=== PATIENT | male | born 1940 | race Caucasian/White ===

== ENCOUNTER 2018-08-06 09:55 | Emergency (ER) | payer MEDICARE ==
[2018-08-06 10:47] LABS: BASOPHILS % (AUTO) 0.6 % (0.0-5.0); EOSINOPHILS % (AUTO) 6.9 % (0.0-8.0); HEMATOCRIT 46.6 % (42-54); MEAN CORPUSCULAR HEMOGLOBIN 33.1 pg (27.0-33.0); MEAN CORPUSCULAR VOLUME 94.5 fL (79-99); MONOCYTES % (AUTO) 9.8 % (3.0-13.0); NEUTROPHILS % (AUTO) 68.7 % (40.0-77.0); PLATELET COUNT (AUTO) 255 K/uL (130-400); RED BLOOD CELL COUNT(AUTO) 4.93 MIL/uL (4.50-6.20); RED CELL DISTRIBUTION WIDTH 12.9 % (11.0-15.5); WHITE BLOOD COUNT (AUTO) 6.7 K/uL (4.8-10.8)
[2018-08-06 10:54] LABS: CREATININE 0.8 mg/dL (0.5-1.5); POTASSIUM 4.2 mmol/L (3.5-5.1)
== END 2018-08-06 12:03 | disposition home or self-care (01) ==
LOC: EDH 09:55
DX: B34.9 Viral infection, unspecified (principal); I10 Essential (primary) hypertension; I48.91 Unspecified atrial fibrillation
CPT/HCPCS: 36415; 71046; 80048; 85025

== ENCOUNTER → 2018-10-15 | Outpatient (CLI) | payer MEDICARE ==
[~2018-10-15] MED LIST: REGADENOSON 0.4 MG/5 ML PF SYG IVP SCH
== END | disposition home or self-care (01) ==
LOC: SHCH 08:32
PROVIDERS: ATTEND Internal Medicine Cardiovascular Disease
DX: I99.8 Other disorder of circulatory system (principal); I25.10 Atherosclerotic heart disease of native coronary artery without angina pectoris; R06.09 Other forms of dyspnea
CPT/HCPCS: 78452; 93017; 96374; A9500 ×2; J2785

== ENCOUNTER → 2018-12-30 | Outpatient (CLI) | payer MEDICARE ==
[2018-12-30 17:08] VITALS: BP 147/77
== END | disposition home or self-care (01) ==
LOC: WHH 14:30
PROVIDERS: ATTEND Surgery
DX: S50.812A Abrasion of left forearm, initial encounter (principal); I10 Essential (primary) hypertension; I48.0 Paroxysmal atrial fibrillation; I25.10 Atherosclerotic heart disease of native coronary artery without angina pectoris; I99.8 Other disorder of circulatory system; W19.XXXA Unspecified fall, initial encounter; Y93.53 Activity, golf; Y92.39 Other specified sports and athletic area as the place of occurrence of the external cause; Y99.8 Other external cause status
CPT/HCPCS: A6021; G0463

== ENCOUNTER → 2019-01-07 | Outpatient (CLI) | payer MEDICARE ==
[2019-01-07 12:15] VITALS: BP 123/74
== END | disposition home or self-care (01) ==
LOC: WHH 10:00
PROVIDERS: ATTEND Surgery
DX: S50.812D Abrasion of left forearm, subsequent encounter (principal); I10 Essential (primary) hypertension; I48.0 Paroxysmal atrial fibrillation; I25.10 Atherosclerotic heart disease of native coronary artery without angina pectoris; I99.8 Other disorder of circulatory system; X58.XXXD Exposure to other specified factors, subsequent encounter
CPT/HCPCS: A6021; G0463

== ENCOUNTER → 2019-01-14 | Outpatient (CLI) | payer MEDICARE ==
[2019-01-14 14:54] VITALS: BP 145/80
== END | disposition home or self-care (01) ==
LOC: WHH 09:45
PROVIDERS: ATTEND Surgery
DX: S50.812D Abrasion of left forearm, subsequent encounter (principal); I10 Essential (primary) hypertension; I48.0 Paroxysmal atrial fibrillation; I25.10 Atherosclerotic heart disease of native coronary artery without angina pectoris; I99.9 Unspecified disorder of circulatory system; X58.XXXD Exposure to other specified factors, subsequent encounter
CPT/HCPCS: 97597; A6021

== ENCOUNTER 2019-08-19 18:10 | Observation (INO) | payer MEDICARE ==
[2019-08-19] VITALS (7 sets, daily range): BP systolic 113–140; BP diastolic 67–75
[~2019-08-19] VITALS: Ht 172.7 cm; Wt 68.4 kg
[2019-08-19] MEDS ORDERED: ASPIRIN 325 MG TABLET ONE (18:12)
[2019-08-19] MEDS ORDERED: NITROGLYCERIN 0.4 MG SL TAB SL ONE (18:15)
[2019-08-19] MEDS ORDERED: NITROGLYCERIN 5 MG/ML 10 ML VIAL IV ONE (18:17)
[2019-08-19] MEDS ORDERED: SODIUM BICARB 50MEQ 50ML VIAL ONE (18:17)
[2019-08-19] MEDS ORDERED: IOHEXOL-350 50ML VIAL IV ONE (18:17)
[2019-08-19] MEDS ORDERED: BIVALIRUDIN 250 MG/VIAL IV ONE (18:17)
[2019-08-19] MEDS ORDERED: IOHEXOL 350 MG/ML 100ML INFUS..BTL IV ONE (18:17)
[2019-08-19] MEDS ORDERED: LIDOCAINE HCL 2% 20ML ONE (18:18)
[2019-08-19] MEDS ORDERED: MIDAZOLAM HCL 1 MG/ML 2ML VIAL ONE (18:18)
[2019-08-19] MEDS ORDERED: FENTANYL CITRATE PF 50 MCG/1 ML 2ML VIAL ONE (18:18)
[2019-08-19] MEDS ORDERED: NITROGLYCERIN 50 MG/D5% WATER 1 BOT ONE (18:21)
[2019-08-19] MEDS ORDERED: LIDOCAINE PF 2% 5ML ABBOJECT ONE (18:25)
[2019-08-19] MEDS ORDERED: ATROPINE SULFATE 0.1 MG/ML 10 ML SYG IVP ONE (18:25)
[2019-08-19] MEDS ORDERED: DOPAMINE HCL 400 MG/D5%-WATER 0 ML IV ONE (18:25)
[2019-08-19 18:42] LABS: BASOPHILS % (AUTO) 0.6 % (0.0-5.0); EOSINOPHILS % (AUTO) 8.7 % (0.0-8.0); LYMPHOCYTES % (AUTO) 23.3 % (21.0-51.0); MEAN CORPUSCULAR HGB CONC 36.7 g/dL (32.0-36.0); MEAN CORPUSCULAR VOLUME 89.8 fL (79-99); MONOCYTES % (AUTO) 9.5 % (3.0-13.0); NEUTROPHILS % (AUTO) 57.6 % (40.0-77.0); PLATELET COUNT (AUTO) 259 K/uL (130-400); RED BLOOD CELL COUNT(AUTO) 4.79 MIL/uL (4.50-6.20); RED CELL DISTRIBUTION WIDTH 12.7 % (11.0-15.5); WHITE BLOOD COUNT (AUTO) 8.8 K/uL (4.8-10.8)
[2019-08-19] MEDS ORDERED: METOPROLOL TARTRATE 1 MG/ML 5ML VIAL IV ONE (18:44)
[2019-08-19 18:54] LABS: INR 0.95 (0.85-1.15); PARTIAL THROMBOPLASTIN TIME 24.4 SEC (26.3-35.5); POTASSIUM 3.1 mmol/L (3.5-5.1)
[2019-08-19 18:59] LABS: ALBUMIN 4.2 g/dL (3.5-5.0); BILIRUBIN,TOTAL 0.6 mg/dL (0.2-1.0); TOTAL PROTEIN, SERUM 7.2 g/dL (6.0-8.3)
[2019-08-19] MEDS ORDERED: IOHEXOL-350 75 ML VIAL IV ONE (19:04)
[2019-08-19] MEDS ORDERED: SODIUM CHLORIDE 0.9% 1000ML 1,000 ML IV SCH (19:49)
[2019-08-19] MEDS ORDERED: POTASSIUM CHLORIDE 20 MEQ ERTAB PO PRN (20:00)
[2019-08-19] MEDS ORDERED: ONDANSETRON HCL 4 MG/2 ML VIAL IVP PRN (20:00)
[2019-08-19] MEDS: METOPROLOL TARTRATE 25 MG TAB PO SCH (21:00)
[2019-08-19 21:12] LABS: TROPONIN I 0.13 ng/mL (0.00-0.06)
[2019-08-19] MEDS ORDERED: IBUPROFEN 200 MG TAB PO SCH (21:15)
[2019-08-19] MEDS ORDERED: DIPHENHYDRAMINE HCL 25 MG CAPSULE PO SCH (21:15)
[2019-08-19] MEDS: FLECAINIDE ACETATE 100 MG TABLET PO SCH (21:39)
[2019-08-20 00:47] VITALS: BP 122/72
[2019-08-20 03:00] VITALS: BP 142/80
[2019-08-20 04:34] LABS: HEMATOCRIT 39.3 % (42-54); MEAN CORPUSCULAR HEMOGLOBIN 32.5 pg (27.0-33.0); MEAN CORPUSCULAR HGB CONC 35.9 g/dL (32.0-36.0); MEAN CORPUSCULAR VOLUME 90.6 fL (79-99); PLATELET COUNT (AUTO) 248 K/uL (130-400); RED BLOOD CELL COUNT(AUTO) 4.34 MIL/uL (4.50-6.20); RED CELL DISTRIBUTION WIDTH 12.7 % (11.0-15.5); WHITE BLOOD COUNT (AUTO) 5.1 K/uL (4.8-10.8)
[2019-08-20 05:11] LABS: CREATININE 0.8 mg/dL (0.5-1.5); POTASSIUM 3.4 mmol/L (3.5-5.1)
[2019-08-20 06:18] LABS: TROPONIN I 0.78 ng/mL (0.00-0.06)
--- NOTE | 2019-08-20 07:45 | NUR ---
AM ASSESSMENT PT SITTING IN BED, RESTING. A/O X 3. NO SOB. NO DISTRESS NOTED. DENIES CHEST PAIN OR DISCOMFORT. DENIES PALPITATIONS. TELE: SR. DENIES N/V AND/OR DIARRHEA. RT GROIN DSG DRY & INTACT. PUNCTURE SITE SOFT, NON-TENDER. NO BLEEDING, NO HEMATOMA NOTED. (+) STRONG PEDAL PULSES BILATERAL. BLE INK & WARM TO TOUCH. UP AD MIK. INSTRUCTED TO CALL FOR ASSISTANCE. CALL GUSTAVO W/IN REACH.
[2019-08-20] MEDS ORDERED: PANT40TA PO (07:59)
[2019-08-20] MEDS ORDERED: Flecainide Acetate PO (07:59)
[2019-08-20] MEDS ORDERED: ASPI-1005 PO (07:59)
[2019-08-20] MEDS ORDERED: CLOP75TA14 PO (07:59)
[2019-08-20] MEDS ORDERED: HYDR25TA PO (07:59)
[2019-08-20] MEDS ORDERED: ATOR20TA65 PO (07:59)
[2019-08-20] MEDS ORDERED: METO25 PO (07:59)
[2019-08-20] MEDS ORDERED: AMLO5TAB4 PO (07:59)
[2019-08-20] MEDS: METOPROLOL TARTRATE 25 MG TAB PO SCH (08:43)
[2019-08-20] MEDS: FLECAINIDE ACETATE 100 MG TABLET PO SCH (08:44)
[2019-08-20] MEDS ORDERED: HYDROCHLOROTHIAZIDE 25 MG TABLET PO SCH (09:00)
[2019-08-20] MEDS ORDERED: ASPIRIN 81MG TAB.CHEW PO SCH (09:00)
[2019-08-20] MEDS ORDERED: ATORVASTATIN CALCIUM 20 MG TABLET PO SCH (09:00)
[2019-08-20] MEDS ORDERED: CLOPIDOGREL BISULFATE 75 MG TAB PO SCH (09:00)
[2019-08-20] MEDS ORDERED: PANTOPRAZOLE SODIUM 40 MG TABLET.DR PO SCH (09:00)
[2019-08-20] MEDS ORDERED: AMLODIPINE BESYLATE 5 MG TAB PO SCH (09:00)
[2019-08-20 09:12] VITALS: BP 150/78
--- NOTE | 2019-08-20 10:30 | NUR ---
DISCHARGE VERBAL & WRITTEN DISCHARGE INSTRUCTIONS REVIEWED & GIVEN TO PT & SPOUSE. QUESTIONS ENCOURAGED & CLARIFIED. PROPER CARE & ACTIVITY AFTER LHC W/STENT REVIEWED. NEW PRESCRIBED MEDICATIONS REVIEWED. PRESCRIPTION GIVEN TO PT. SIGNED COPY PLACED IN CHART. TELE HERMILO REMOVED. IV DISCONTINUED. PT & SPOUSE TO GATHER PERSONAL BELONGINGS.
--- NOTE | 2019-08-20 10:45 | NUR ---
DISCHARGE PT TAKEN TO PRIVATE VEHICLE VIA WC BY Elyssa RO PCP, ACCOMPANIED BY SPOUSE. NO DISTRESS NOTED.
[2019-08-26] MEDS ORDERED: CLOPIDOGREL BISULFATE 75 MG TAB PO SCH (09:00)
== END 2019-08-20 10:45 | disposition home or self-care (01) ==
LOC: EDH 18:10 → EDHIP 18:27 → 2AH 19:56
PROVIDERS: ADMIT Internal Medicine; ATTEND Internal Medicine
DX: I21.4 Non-ST elevation (NSTEMI) myocardial infarction (principal); I48.0 Paroxysmal atrial fibrillation; I10 Essential (primary) hypertension; E78.5 Hyperlipidemia, unspecified; I25.119 Atherosclerotic heart disease of native coronary artery with unspecified angina pectoris; Z95.5 Presence of coronary angioplasty implant and graft; Z85.46 Personal history of malignant neoplasm of prostate; Z90.79 Acquired absence of other genital organ(s); Z79.01 Long term (current) use of anticoagulants; Z79.82 Long term (current) use of aspirin; Z79.899 Other long term (current) drug therapy
CPT/HCPCS: 36415; 71045; 80048; 80053; 80061; 82550; 83874; 84484; 85025; 85027; 85610; 85730; 93005; 93458; 99156; 99157; C1725; C1760; C1769; C1887; C1894; C9600; G0378; J0461; J0583; J1265; J1644; J2001; J2250; J3010; J3490; Q0163; Q9967

== ENCOUNTER 2019-09-03 09:26 | Emergency (ER) | payer MEDICARE ==
[~2019-09-03 09:26] MED LIST changes: +AMLO5TAB4 PO; +ASPI-1005 PO; +ATOR20TA65 PO; +CLOP75TA14 PO; +Flecainide Acetate PO; +HYDR25TA PO; +METO25 PO; +PANT40TA PO; -REGADENOSON 0.4 MG/5 ML PF SYG IVP SCH
[2019-09-03 09:52] LABS: EOSINOPHILS % (AUTO) 10.2 % (0.0-8.0); HEMATOCRIT 46.8 % (42-54); LYMPHOCYTES % (AUTO) 25.3 % (21.0-51.0); MEAN CORPUSCULAR HEMOGLOBIN 32.6 pg (27.0-33.0); MEAN CORPUSCULAR HGB CONC 35.3 g/dL (32.0-36.0); MEAN CORPUSCULAR VOLUME 92.5 fL (79-99); MONOCYTES % (AUTO) 10.2 % (3.0-13.0); NEUTROPHILS % (AUTO) 52.9 % (40.0-77.0); PLATELET COUNT (AUTO) 245 K/uL (130-400); RED BLOOD CELL COUNT(AUTO) 5.06 MIL/uL (4.50-6.20); RED CELL DISTRIBUTION WIDTH 12.9 % (11.0-15.5); WHITE BLOOD COUNT (AUTO) 4.8 K/uL (4.8-10.8)
[2019-09-03 10:08] LABS: INR 0.97 (0.85-1.15); PARTIAL THROMBOPLASTIN TIME 24.9 SEC (26.3-35.5); PROTHROMBIN TIME 10.2 SEC (9.6-11.6)
[2019-09-03 10:22] LABS: POTASSIUM 3.9 mmol/L (3.5-5.1)
[2019-09-03 10:27] LABS: ALBUMIN 3.9 g/dL (3.5-5.0); BILIRUBIN,TOTAL 0.6 mg/dL (0.2-1.0); TOTAL PROTEIN, SERUM 6.8 g/dL (6.0-8.3)
[2019-09-03 10:27] LABS: APPEARANCE,URINE Clear (CLEAR); BILIRUBIN,URINE Negative (NEGATIVE); COLOR,URINE Yellow (YELLOW); GLUCOSE, URINE (UA) Negative (NEGATIVE); KETONES,URINE Negative (NEGATIVE); LEUKOCYTE ESTERASE ,URINE Negative (NEGATIVE); NITRATE,URINE Negative (NEGATIVE); OCCULT BLOOD,URINE Negative (NEGATIVE); PROTEIN,URINE Negative (NEGATIVE); UROBILINOGEN,URINE 0.2 mg/dL (0.2-1.0)
== END 2019-09-03 11:41 | disposition home or self-care (01) ==
LOC: EDH 09:26
DX: T78.3XXA Angioneurotic edema, initial encounter (principal); I10 Essential (primary) hypertension; I48.91 Unspecified atrial fibrillation; I25.2 Old myocardial infarction; T45.525A Adverse effect of antithrombotic drugs, initial encounter; Y92.89 Other specified places as the place of occurrence of the external cause
CPT/HCPCS: 36415; 80053; 81003; 85025; 85610; 85730

== ENCOUNTER → 2021-03-06 | Outpatient (CLI) | payer MEDICARE | END | disposition home or self-care (01) | LOC: RAH 11:49 | PROVIDERS: ATTEND Internal Medicine | DX: Z01.818 Encounter for other preprocedural examination (principal) | CPT/HCPCS: 71046 ==

== ENCOUNTER 2023-01-20 06:39 | Day surgery (SDC) | payer MEDICARE ==
[2023-01-16 16:19] LABS: BASOPHILS % (AUTO) 0.8 % (0.0-5.0); EOSINOPHILS % (AUTO) 7.6 % (0.0-8.0); HEMATOCRIT 49.2 % (42-54); LYMPHOCYTES % (AUTO) 24.6 % (21.0-51.0); MEAN CORPUSCULAR HEMOGLOBIN 31.9 pg (27.0-33.0); MEAN CORPUSCULAR HGB CONC 34.3 g/dL (32.0-36.0); MONOCYTES % (AUTO) 8.3 % (3.0-13.0); NEUTROPHILS % (AUTO) 58.5 % (40.0-77.0); PLATELET COUNT (AUTO) 228 K/uL (130-400); RED BLOOD CELL COUNT(AUTO) 5.29 MIL/uL (4.50-6.20); RED CELL DISTRIBUTION WIDTH 13.2 % (11.0-15.5); WHITE BLOOD COUNT (AUTO) 5.9 K/uL (4.8-10.8)
[2023-01-16 16:30] LABS: CREATININE 0.8 mg/dL (0.5-1.5); POTASSIUM 4.1 mmol/L (3.5-5.1)
[2023-01-16 16:53] VITALS: BP 125/67
[~2023-01-20] VITALS: Ht 172.7 cm; Wt 71.0 kg
[~2023-01-20 06:39] MED LIST changes: +AMLO-257 PO; -AMLO5TAB4 PO; +APIX5TAB PO; -ASPI-1005 PO; -ATOR20TA65 PO; -CLOP75TA14 PO; +FLEC150T2 PO; -Flecainide Acetate PO; -HYDR25TA PO; +LOSA50TA64 PO; -METO25 PO; -PANT40TA PO; +PANT40TA54 PO; +TADA20TA43 PO
[2023-01-20] MEDS ORDERED: 0.9%NACL 1000ML 1,000 ML IV ONE (06:48)
[2023-01-20] MEDS ORDERED: DRON400T7 PO ×2 (07:36→08:31)
[2023-01-20 07:37] VITALS: BP 129/75
[2023-01-20] MEDS ORDERED: PROPOFOL 10 MG/ML 20ML VIAL IV ONE (07:59)
[2023-01-20] MEDS ORDERED: PHENYLEPHRINE HCL 10 MG/ML 1ML VIAL IV ONE (08:00)
[2023-01-20] MEDS ORDERED: SUCCINYLCHOLINE 200MG/10ML SYR ONE (08:03)
[2023-01-20 08:20] VITALS: BP 103/59
[2023-01-20 08:30] VITALS: BP 105/60
[2023-01-20 08:40] VITALS: BP 125/69
[2023-01-20 08:50] VITALS: BP 126/73
== END 2023-01-20 09:05 | disposition home or self-care (01) ==
LOC: DAH 06:39
PROVIDERS: ATTEND Internal Medicine Cardiovascular Disease
DX: I48.19 Other persistent atrial fibrillation (principal); Z20.822 Contact with and (suspected) exposure to COVID-19; I10 Essential (primary) hypertension; I25.10 Atherosclerotic heart disease of native coronary artery without angina pectoris; Z86.73 Personal history of transient ischemic attack (TIA), and cerebral infarction without residual deficits; Z95.5 Presence of coronary angioplasty implant and graft; Z98.890 Other specified postprocedural states; Z85.46 Personal history of malignant neoplasm of prostate; Z90.79 Acquired absence of other genital organ(s); Z79.01 Long term (current) use of anticoagulants; Z79.899 Other long term (current) drug therapy
CPT/HCPCS: 87426; 80048; 85025; 36415; 92960; 93005 ×2; J0330; J7030; J2704; J2370; A4215; A4657; A4222; A4221; A4663; A4216; A4606; A4223 ×2

== ENCOUNTER → 2023-02-07 | Outpatient (CLI) | payer MEDICARE ==
[~2023-02-07] MED LIST changes: +DRON400T7 PO; -FLEC150T2 PO
[2023-02-07 15:21] LABS: CREATININE 0.9 mg/dL (0.5-1.5)
== END | disposition home or self-care (01) ==
LOC: LAB 13:58
PROVIDERS: ATTEND Internal Medicine Cardiovascular Disease
DX: I48.0 Paroxysmal atrial fibrillation (principal)
CPT/HCPCS: 36415; 82565; 84520

== ENCOUNTER → 2023-02-21 | Outpatient (CLI) | payer MEDICARE ==
[~2023-02-21] MED LIST changes: +ATOR10 PO; +IOHEXOL 350 MG/ML 100ML INFUS..BTL IV ONE; +SUCR1ORA15 PO
== END | disposition home or self-care (01) ==
LOC: RAH 09:54
PROVIDERS: ATTEND Internal Medicine Cardiovascular Disease
DX: I48.19 Other persistent atrial fibrillation (principal); I51.7 Cardiomegaly
CPT/HCPCS: 71275; Q9967

== ENCOUNTER 2023-02-25 06:00 | Observation (INO) | payer MEDICARE ==
[2023-02-24 09:12] LABS: BASOPHILS % (AUTO) 0.8 % (0.0-5.0); EOSINOPHILS % (AUTO) 5.2 % (0.0-8.0); HEMATOCRIT 48.7 % (42-54); LYMPHOCYTES % (AUTO) 23.2 % (21.0-51.0); MEAN CORPUSCULAR HEMOGLOBIN 31.7 pg (27.0-33.0); MEAN CORPUSCULAR HGB CONC 34.7 g/dL (32.0-36.0); MEAN CORPUSCULAR VOLUME 91.4 fL (79-99); MONOCYTES % (AUTO) 8.7 % (3.0-13.0); NEUTROPHILS % (AUTO) 61.9 % (40.0-77.0); PLATELET COUNT (AUTO) 219 K/uL (130-400); RED BLOOD CELL COUNT(AUTO) 5.33 MIL/uL (4.50-6.20); RED CELL DISTRIBUTION WIDTH 13.7 % (11.0-15.5)
[2023-02-24 09:22] LABS: CREATININE 0.8 mg/dL (0.5-1.5); POTASSIUM 4.4 mmol/L (3.5-5.1)
[2023-02-24 09:26] LABS: INR 1.06 (0.85-1.15); PROTHROMBIN TIME 11.5 SEC (9.6-11.6)
[2023-02-24 09:27] LABS: PARTIAL THROMBOPLASTIN TIME 32.1 SEC (26.3-35.5)
[2023-02-24 09:39] VITALS: BP 150/95
[~2023-02-25] VITALS: Ht 172.7 cm; Wt 70.4 kg
[2023-02-25] VITALS (17 sets, daily range): BP systolic 104–150; BP diastolic 60–100
[~2023-02-25 06:00] MED LIST changes: -ATOR10 PO; -DRON400T7 PO; -IOHEXOL 350 MG/ML 100ML INFUS..BTL IV ONE; -SUCR1ORA15 PO
[2023-02-25] MEDS ORDERED: 0.9%NACL 1000ML 1,000 ML IV ONE (06:26)
[2023-02-25] MEDS ORDERED: PROPOFOL 10 MG/ML 20ML VIAL IV ONE (06:52)
[2023-02-25] MEDS ORDERED: MIDAZOLAM HCL 1 MG/ML 2ML VIAL ONE ×2 (06:52→07:16)
[2023-02-25] MEDS ORDERED: FENTANYL CITRATE PF 50 MCG/1 ML 2ML VIAL ONE ×3 (06:53→08:27)
[2023-02-25] MEDS ORDERED: PHENYLEPHRINE HCL 10 MG/ML 1ML VIAL IV ONE ×2 (07:04→07:52)
[2023-02-25] MEDS ORDERED: ATOR10 PO (07:06)
[2023-02-25] MEDS ORDERED: HEPARIN 10,000 UNIT/10ML (1,000 UNIT/ML) VIAL ONE ×2 (07:17→08:38)
[2023-02-25] MEDS ORDERED: LIDOCAINE HCL 1% MDV 50ML VIAL ONE (07:17)
[2023-02-25] MEDS ORDERED: ROCURONIUM 10MG/1ML SYR 10 MG/ML ML ONE (07:23)
[2023-02-25] MEDS ORDERED: GLYCOPYRROLATE 1 MG/5 ML SYRINGE ONE (08:27)
[2023-02-25] MEDS ORDERED: NEOSTIGMINE 5MG/5ML SYR IV ONE (08:27)
[2023-02-25] MEDS ORDERED: ISOPROTERENOL HCL 0.2 MG/ML AMP/VIAL/BAG ONE (10:30)
[2023-02-25] MEDS ORDERED: MORPHINE 2 MG SYG ONE (12:09)
[2023-02-25] MEDS: SUCRALFATE 1 GM TABLET PO SCH ×2 (13:00→18:42)
[2023-02-25] MEDS ORDERED: SUCRALFATE 1 GM TABLET PO SCH (14:30)
[2023-02-25] MEDS: AMLODIPINE 5 MG TAB PO SCH ×2 (21:00→21:16)
[2023-02-25] MEDS: ATORVASTATIN 10 MG TABLET PO SCH ×2 (21:00→21:16)
[2023-02-25] MEDS: APIXABAN 5 MG TABLET PO SCH (21:16)
[2023-02-25] MEDS ORDERED: ZOLPIDEM TARTRATE 5 MG TAB PO ONE (21:30)
[2023-02-26 00:03] VITALS: BP 129/76
[2023-02-26] MEDS: SUCRALFATE 1 GM TABLET PO SCH ×2 (01:05→06:18)
[2023-02-26 03:09] VITALS: BP 131/75
[2023-02-26 06:43] LABS: HEMATOCRIT 41.1 % (42-54); MEAN CORPUSCULAR HEMOGLOBIN 31.7 pg (27.0-33.0); MEAN CORPUSCULAR HGB CONC 34.8 g/dL (32.0-36.0); MEAN CORPUSCULAR VOLUME 91.1 fL (79-99); PLATELET COUNT (AUTO) 194 K/uL (130-400); RED BLOOD CELL COUNT(AUTO) 4.51 MIL/uL (4.50-6.20); RED CELL DISTRIBUTION WIDTH 13.8 % (11.0-15.5); WHITE BLOOD COUNT (AUTO) 9.4 K/uL (4.8-10.8)
[2023-02-26 06:47] LABS: CREATININE 0.8 mg/dL (0.5-1.5); POTASSIUM 3.3 mmol/L (3.5-5.1)
[2023-02-26 07:17] LABS: BASOPHILS % (MANUAL) 2 % (0-2); EOSINOPHILS % (MANUAL) 2 % (1-6); LYMPHOCYTES % (MANUAL) 7 % (22-44); MAN.DIFF COMMENT-IMPRESSION MANUAL DIFFERENTIAL; MONOCYTES % (MANUAL) 10 % (2-9); PLATELET MORPHOLOGY COMMENT ADEQUATE; SEGMENTED NEUTROPHILS % 79 % (40-70)
[2023-02-26] MEDS: APIXABAN 5 MG TABLET PO SCH (08:19)
[2023-02-26] MEDS: AMLODIPINE 5 MG TAB PO SCH (08:19)
[2023-02-26 08:42] VITALS: BP 145/89
[2023-02-26] MEDS ORDERED: LOSARTAN 50 MG TABLET PO SCH (09:00)
[2023-02-26] MEDS ORDERED: PANTOPRAZOLE 40 MG TAB DR PO SCH (09:00)
[2023-02-26] MEDS ORDERED: SUCR1ORA15 PO (09:07)
[2023-02-26] MEDS ORDERED: DRON400T7 PO (09:07)
[2023-02-26] MEDS ORDERED: DRONEDARONE HYDROCHLORIDE 400 MG TABLET PO SCH (09:30)
[2023-02-26] MEDS ORDERED: KCL 20 MEQ ERTAB PO ONE (09:30)
== END 2023-02-26 10:58 | disposition home or self-care (01) ==
LOC: DAH 06:00 → DAHIP 06:01 → 2DH 13:06
PROVIDERS: ADMIT Internal Medicine Cardiovascular Disease; ATTEND Internal Medicine Cardiovascular Disease
DX: I48.19 Other persistent atrial fibrillation (principal); Z20.822 Contact with and (suspected) exposure to COVID-19; I25.10 Atherosclerotic heart disease of native coronary artery without angina pectoris; J44.9 Chronic obstructive pulmonary disease, unspecified; I10 Essential (primary) hypertension; Z79.82 Long term (current) use of aspirin; Z79.899 Other long term (current) drug therapy; Z98.890 Other specified postprocedural states; Z85.46 Personal history of malignant neoplasm of prostate; Z95.1 Presence of aortocoronary bypass graft
CPT/HCPCS: 80048 ×2; 85025 ×2; 85610; 85730; 87426; 36415 ×2; 93005 ×2; 93622; 93623; 93656; 85347 ×6; C1894 ×5; A4344; C1732 ×2; C1893; A4215 ×2; C1731; A4649 ×2; G0378 ×23; J3010 ×3; J3490 ×3; J2710; J2270; J7030; J1644 ×4; J2250; J2704; J2370 ×2; A4223 ×3; A4222; A4221; A4663; A4216; A4606

== ENCOUNTER 2023-04-11 06:52 | Day surgery (SDC) | payer MEDICARE ==
[2023-04-09 10:53] LABS: BASOPHILS # (AUTO) 0.04 K/uL (0.00-0.20); BASOPHILS % (AUTO) 0.8 % (0.0-5.0); EOSINOPHILS # (AUTO) 0.32 K/uL (0.00-0.70); EOSINOPHILS % (AUTO) 6.6 % (0.0-8.0); IMMATURE GRANULOCYTE ABSOLUTE 0.01 K/uL (0-1); LYMPHOCYTES # (AUTO) 1.2 K/uL (1.0-4.8); LYMPHOCYTES % (AUTO) 23.8 % (21.0-51.0); MEAN CORPUSCULAR HEMOGLOBIN 32.3 pg (27.0-33.0); MEAN CORPUSCULAR HGB CONC 34.4 g/dL (32.0-36.0); MEAN CORPUSCULAR VOLUME 93.9 fL (79-99); MONOCYTES # (AUTO) 0.5 K/uL (0.1-1.0); MONOCYTES % (AUTO) 10.2 % (3.0-13.0); NEUTROPHILS # (AUTO) 2.9 K/uL (1.8-7.7); NEUTROPHILS % (AUTO) 58.4 % (40.0-77.0); PLATELET COUNT (AUTO) 212 K/uL (130-400); RED BLOOD CELL COUNT(AUTO) 5.11 MIL/uL (4.50-6.20); RED CELL DISTRIBUTION WIDTH 13.7 % (11.0-15.5); WHITE BLOOD COUNT (AUTO) 4.9 K/uL (4.8-10.8)
[2023-04-09 10:56] VITALS: BP 150/84; PULSE 84; RESP 18
[2023-04-09 11:32] LABS: CREATININE 0.9 mg/dL (0.5-1.5); POTASSIUM 4.1 mmol/L (3.5-5.1)
[~2023-04-11] VITALS: Ht 172.7 cm; Wt 69.5 kg
[~2023-04-11 06:52] MED LIST changes: +ATOR10 PO; +DRON400T7 PO
[2023-04-11 07:10] VITALS: BP 130/73; PULSE 78; RESP 18
[2023-04-11] MEDS ORDERED: 0.9%NACL 1000ML 1,000 ML IV ONE (07:57)
[2023-04-11] MEDS ORDERED: LIDOCAINE PF 100MG/5ML (2%) SYRINGE 5ML ONE (08:32)
[2023-04-11] MEDS ORDERED: PROPOFOL 10 MG/ML 20ML VIAL IV ONE (08:33)
[2023-04-11 08:50] VITALS: BP 113/66; PULSE 55; RESP 15
[2023-04-11 09:05] VITALS: BP 122/69; PULSE 55; RESP 16
[2023-04-11 09:15] VITALS: BP 116/68; PULSE 55; RESP 15
[2023-04-11 09:25] VITALS: BP 123/65; PULSE 56; RESP 15
== END 2023-04-11 09:35 | disposition home or self-care (01) ==
LOC: DAH 06:52
PROVIDERS: ATTEND Internal Medicine Cardiovascular Disease
DX: I48.19 Other persistent atrial fibrillation (principal); Z20.822 Contact with and (suspected) exposure to COVID-19; I10 Essential (primary) hypertension; I49.3 Ventricular premature depolarization; I25.10 Atherosclerotic heart disease of native coronary artery without angina pectoris; Z86.73 Personal history of transient ischemic attack (TIA), and cerebral infarction without residual deficits; Z95.5 Presence of coronary angioplasty implant and graft; Z90.79 Acquired absence of other genital organ(s); Z79.01 Long term (current) use of anticoagulants; Z79.899 Other long term (current) drug therapy
CPT/HCPCS: 80048; 85025; 87426; 36415; 93005 ×2; 92960; J7030; J2001; J2704; A4215; A4223 ×3; A7002; A4222; A4221; A4663; A4216; A4606; J3490

== ENCOUNTER 2023-06-16 07:45 | Day surgery (SDC) | payer MEDICARE ==
[2023-06-12 10:47] LABS: BASOPHILS # (AUTO) 0.03 K/uL (0.00-0.20); BASOPHILS % (AUTO) 0.6 % (0.0-5.0); EOSINOPHILS # (AUTO) 0.31 K/uL (0.00-0.70); EOSINOPHILS % (AUTO) 6.7 % (0.0-8.0); HEMATOCRIT 49.2 % (42-54); IMMATURE GRANULOCYTE ABSOLUTE 0.02 K/uL (0-1); LYMPHOCYTES # (AUTO) 1.3 K/uL (1.0-4.8); LYMPHOCYTES % (AUTO) 26.9 % (21.0-51.0); MEAN CORPUSCULAR HEMOGLOBIN 31.9 pg (27.0-33.0); MEAN CORPUSCULAR HGB CONC 34.6 g/dL (32.0-36.0); MEAN CORPUSCULAR VOLUME 92.3 fL (79-99); MONOCYTES # (AUTO) 0.5 K/uL (0.1-1.0); MONOCYTES % (AUTO) 10.1 % (3.0-13.0); NEUTROPHILS # (AUTO) 2.6 K/uL (1.8-7.7); NEUTROPHILS % (AUTO) 55.3 % (40.0-77.0); PLATELET COUNT (AUTO) 226 K/uL (130-400); RED BLOOD CELL COUNT(AUTO) 5.33 MIL/uL (4.50-6.20); RED CELL DISTRIBUTION WIDTH 13.6 % (11.0-15.5); WHITE BLOOD COUNT (AUTO) 4.7 K/uL (4.8-10.8)
[2023-06-12 10:57] VITALS: BP 173/95; PULSE 95; RESP 18
[2023-06-12 11:00] LABS: POTASSIUM 4.2 mmol/L (3.5-5.1)
[~2023-06-16] VITALS: Ht 172.7 cm; Wt 70.0 kg
[2023-06-16] VITALS (9 sets, daily range): BP systolic 91–143; BP diastolic 46–82; PULSE 55–80; RESP 14–18
[2023-06-16] MEDS ORDERED: METO-408 PO (08:49)
[2023-06-16] MEDS ORDERED: 0.9%NACL 1000ML 1,000 ML IV ONE (09:04)
[2023-06-16] MEDS ORDERED: PROPOFOL 10 MG/ML 20ML VIAL IV ONE (09:07)
[2023-06-16] MEDS ORDERED: LIDOCAINE PF 100MG/5ML (2%) SYRINGE 5ML ONE (09:07)
[2023-06-16] MEDS ORDERED: PHENYLEPHRINE HCL 10 MG/ML 1ML VIAL IV ONE (09:08)
== END 2023-06-16 10:10 | disposition home or self-care (01) ==
LOC: DAH 07:45
PROVIDERS: ATTEND Internal Medicine Cardiovascular Disease
DX: I48.19 Other persistent atrial fibrillation (principal); I10 Essential (primary) hypertension; I25.10 Atherosclerotic heart disease of native coronary artery without angina pectoris; Z79.01 Long term (current) use of anticoagulants; Z95.5 Presence of coronary angioplasty implant and graft; Z90.79 Acquired absence of other genital organ(s); Z92.21 Personal history of antineoplastic chemotherapy; Z88.8 Allergy status to other drugs, medicaments and biological substances; Z79.899 Other long term (current) drug therapy; Z98.890 Other specified postprocedural states
CPT/HCPCS: 80048; 85025; 36415; 92960; 93005 ×2; J7030; J2001; J2704; J2371; A4215; A4213; A4222; A4221; A4663; A4216; A4606; A4223 ×3; J3490

== ENCOUNTER → 2023-12-08 | Outpatient (CLI) | payer MEDICARE ==
[~2023-12-08] MED LIST changes: +METO-408 PO; -TADA20TA43 PO; +[UNRECOGNIZED DRUG - CODE] PO
== END | disposition home or self-care (01) ==
LOC: LAB 10:57
PROVIDERS: ATTEND Internal Medicine Cardiovascular Disease
DX: N17.9 Acute kidney failure, unspecified (principal)
CPT/HCPCS: 36415; 80048

== ENCOUNTER 2023-12-17 06:28 | Day surgery (SDC) | payer MEDICARE ==
[2023-12-16 15:50] LABS: BASOPHILS # (AUTO) 0.04 K/uL (0.00-0.20); BASOPHILS % (AUTO) 0.6 % (0.0-5.0); EOSINOPHILS # (AUTO) 0.35 K/uL (0.00-0.70); EOSINOPHILS % (AUTO) 5.4 % (0.0-8.0); HEMATOCRIT 46.4 % (42-54); IMMATURE GRANULOCYTE ABSOLUTE 0.02 K/uL (0-1); LYMPHOCYTES # (AUTO) 1.2 K/uL (1.0-4.8); LYMPHOCYTES % (AUTO) 18.7 % (21.0-51.0); MEAN CORPUSCULAR HEMOGLOBIN 32.8 pg (27.0-33.0); MEAN CORPUSCULAR HGB CONC 34.9 g/dL (32.0-36.0); MEAN CORPUSCULAR VOLUME 93.9 fL (79-99); MONOCYTES # (AUTO) 0.7 K/uL (0.1-1.0); MONOCYTES % (AUTO) 10.7 % (3.0-13.0); NEUTROPHILS # (AUTO) 4.2 K/uL (1.8-7.7); NEUTROPHILS % (AUTO) 64.3 % (40.0-77.0); PLATELET COUNT (AUTO) 274 K/uL (130-400); RED BLOOD CELL COUNT(AUTO) 4.94 MIL/uL (4.50-6.20); RED CELL DISTRIBUTION WIDTH 13.7 % (11.0-15.5); WHITE BLOOD COUNT (AUTO) 6.5 K/uL (4.8-10.8)
[2023-12-16 16:01] LABS: INR 1.02 (0.85-1.15)
[2023-12-16 16:02] LABS: PARTIAL THROMBOPLASTIN TIME 29.3 SEC (26.3-35.5)
[2023-12-16 16:10] VITALS: BP 154/91; PULSE 85; RESP 17
[2023-12-16 16:10] LABS: CREATININE 0.9 mg/dL (0.5-1.3); POTASSIUM 3.8 mmol/L (3.5-5.1)
[2023-12-17] VITALS (14 sets, daily range): BP systolic 106–149; BP diastolic 60–89; PULSE 54–89; RESP 15–16
[~2023-12-17] VITALS: Ht 172.7 cm; Wt 72.5 kg
[~2023-12-17 06:28] MED LIST changes: +CARB1TAB35 PO; -DRON400T7 PO
[2023-12-17] MEDS ORDERED: FENTANYL CITRATE PF 50 MCG/1 ML 2ML VIAL IVP ONE (07:00)
[2023-12-17] MEDS ORDERED: MIDAZOLAM HCL 1 MG/ML 2ML VIAL IVP ONE (07:00)
[2023-12-17] MEDS ORDERED: 0.9%NACL 1000ML 1,000 ML IV ONE (07:08)
== END 2023-12-17 11:00 | disposition home or self-care (01) ==
LOC: DAH 06:28
PROVIDERS: ATTEND Internal Medicine Cardiovascular Disease
DX: I47.19 Other supraventricular tachycardia (principal); I10 Essential (primary) hypertension; F17.200 Nicotine dependence, unspecified, uncomplicated; I25.2 Old myocardial infarction; Z86.73 Personal history of transient ischemic attack (TIA), and cerebral infarction without residual deficits; Z95.5 Presence of coronary angioplasty implant and graft; Z79.899 Other long term (current) drug therapy; Z79.01 Long term (current) use of anticoagulants; Z85.46 Personal history of malignant neoplasm of prostate; Z92.3 Personal history of irradiation; Z98.890 Other specified postprocedural states; Z72.89 Other problems related to lifestyle; Z86.79 Personal history of other diseases of the circulatory system
CPT/HCPCS: 80048; 85025; 85610; 85730; 36415; 92960; 93005 ×2; J3010 ×2; J7030; J2250; A4215; A4222; A4221; A4663; A4216; A4606; A4223 ×3; 99152; G0500

== ENCOUNTER 2024-01-26 06:27 | Day surgery (SDC) | payer MEDICARE ==
[2024-01-23 12:37] LABS: BASOPHILS # (AUTO) 0.06 K/uL (0.00-0.20); BASOPHILS % (AUTO) 0.9 % (0.0-5.0); EOSINOPHILS # (AUTO) 0.42 K/uL (0.00-0.70); HEMATOCRIT 52.2 % (42-54); IMMATURE GRANULOCYTE ABSOLUTE 0.02 K/uL (0-1); LYMPHOCYTES # (AUTO) 1.5 K/uL (1.0-4.8); MEAN CORPUSCULAR HEMOGLOBIN 31.6 pg (27.0-33.0); MEAN CORPUSCULAR HGB CONC 34.1 g/dL (32.0-36.0); MEAN CORPUSCULAR VOLUME 92.7 fL (79-99); MONOCYTES # (AUTO) 0.6 K/uL (0.1-1.0); MONOCYTES % (AUTO) 8.9 % (3.0-13.0); NEUTROPHILS # (AUTO) 4.4 K/uL (1.8-7.7); NEUTROPHILS % (AUTO) 62.9 % (40.0-77.0); PLATELET COUNT (AUTO) 187 K/uL (130-400); RED BLOOD CELL COUNT(AUTO) 5.63 MIL/uL (4.50-6.20); RED CELL DISTRIBUTION WIDTH 13.4 % (11.0-15.5)
[2024-01-23 12:53] LABS: CREATININE 0.8 mg/dL (0.5-1.3); POTASSIUM 4.4 mmol/L (3.5-5.1)
[2024-01-23 12:55] LABS: INR 1.03 (0.85-1.15); PROTHROMBIN TIME 12.1 SEC (9.6-11.6)
[2024-01-23 12:56] LABS: PARTIAL THROMBOPLASTIN TIME 28.5 SEC (26.3-35.5)
[2024-01-23 13:17] VITALS: BP 142/93; PULSE 109; RESP 16
[~2024-01-26] VITALS: Ht 172.7 cm; Wt 70.8 kg
[2024-01-26] VITALS (10 sets, daily range): BP systolic 94–118; BP diastolic 54–80; PULSE 58–109; RESP 12–18
[~2024-01-26 06:27] MED LIST changes: +TADA20TA72 PO; -[UNRECOGNIZED DRUG - CODE] PO
[2024-01-26] MEDS ORDERED: FENTANYL CITRATE PF 50 MCG/1 ML 2ML VIAL IVP ONE (07:00)
[2024-01-26] MEDS ORDERED: MIDAZOLAM HCL 1 MG/ML 2ML VIAL IVP ONE (07:00)
[2024-01-26] MEDS ORDERED: LIDOCAINE PF 100MG/5ML (2%) SYRINGE 5ML ONE (07:28)
[2024-01-26] MEDS ORDERED: PROPOFOL 10 MG/ML 20ML VIAL IV ONE (07:28)
[2024-01-26] MEDS ORDERED: DRON400T7 PO (08:12)
[2024-01-26] MEDS ORDERED: 0.9%NACL 1000ML 1,000 ML IV ONE (08:24)
== END 2024-01-26 09:00 | disposition home or self-care (01) ==
LOC: DAH 06:27
PROVIDERS: ATTEND Internal Medicine Cardiovascular Disease
DX: I47.19 Other supraventricular tachycardia (principal); I48.0 Paroxysmal atrial fibrillation; I49.3 Ventricular premature depolarization; I10 Essential (primary) hypertension; G20.A1 Parkinson's disease without dyskinesia, without mention of fluctuations; I25.2 Old myocardial infarction; Z86.73 Personal history of transient ischemic attack (TIA), and cerebral infarction without residual deficits; Z95.5 Presence of coronary angioplasty implant and graft; Z79.01 Long term (current) use of anticoagulants; Z79.899 Other long term (current) drug therapy; Z72.89 Other problems related to lifestyle
CPT/HCPCS: 80048; 85025; 85610; 85730; 36415; 92960; 93005 ×2; J7030; J2001; J2704; A4620; A4215; A4657; A4222; A4221; A4663; A4216; A4606; A4223 ×3; J3490

== ENCOUNTER 2024-07-06 10:37 | Day surgery (SDC) | payer MEDICARE ==
[~2024-07-06] VITALS: Ht 172.7 cm; Wt 69.4 kg
[~2024-07-06 10:37] MED LIST changes: +DRON400T7 PO
[2024-07-06] MEDS ORDERED: ENTA200T5 PO (11:22)
[2024-07-06] MEDS ORDERED: METO-391 PO (11:22)
[2024-07-06 11:38] VITALS: BP 145/76; PULSE 72; RESP 15; TEMP 97.8
[2024-07-06 11:57] LABS: BASOPHILS # (AUTO) 0.04 K/uL (0.00-0.20); BASOPHILS % (AUTO) 0.7 % (0.0-5.0); EOSINOPHILS # (AUTO) 0.26 K/uL (0.00-0.70); EOSINOPHILS % (AUTO) 4.4 % (0.0-8.0); HEMATOCRIT 48.8 % (42-54); IMMATURE GRANULOCYTE ABSOLUTE 0.03 K/uL (0-1); LYMPHOCYTES # (AUTO) 1.3 K/uL (1.0-4.8); LYMPHOCYTES % (AUTO) 20.9 % (21.0-51.0); MEAN CORPUSCULAR HEMOGLOBIN 30.5 pg (27.0-33.0); MEAN CORPUSCULAR HGB CONC 34.2 g/dL (32.0-36.0); MEAN CORPUSCULAR VOLUME 89.2 fL (79-99); MONOCYTES # (AUTO) 0.6 K/uL (0.1-1.0); MONOCYTES % (AUTO) 10.6 % (3.0-13.0); NEUTROPHILS # (AUTO) 3.8 K/uL (1.8-7.7); NEUTROPHILS % (AUTO) 62.9 % (40.0-77.0); PLATELET COUNT (AUTO) 226 K/uL (130-400); RED BLOOD CELL COUNT(AUTO) 5.47 MIL/uL (4.50-6.20); RED CELL DISTRIBUTION WIDTH 14.1 % (11.0-15.5)
[2024-07-06 12:09] LABS: INR 1.05 (0.85-1.15); PROTHROMBIN TIME 11.3 SEC (9.6-11.6)
[2024-07-06 12:10] LABS: PARTIAL THROMBOPLASTIN TIME 25.9 SEC (26.3-35.5)
[2024-07-06 12:13] LABS: POTASSIUM 3.7 mmol/L (3.5-5.1)
[2024-07-06] MEDS ORDERED: MEPERIDINE-PF 25 MG/ML SYG ONE ×3 (12:47→13:23)
[2024-07-06] MEDS ORDERED: LIDOCAINE HCL 1% MDV 50ML VIAL ONE (12:47)
[2024-07-06] MEDS ORDERED: MIDAZOLAM HCL 1 MG/ML 2ML VIAL ONE ×3 (12:47→13:23)
[2024-07-06] MEDS ORDERED: BUPIvacaine/PF 0.25% 30ML VIAL IJ ONE (12:48)
[2024-07-06] MEDS ORDERED: ceFAZolin SODIUM 1 GM VIAL ONE (12:48)
[2024-07-06] MEDS ORDERED: IOHEXOL-350 50ML VIAL IV ONE (12:48)
[2024-07-06] MEDS: 0.9%NACL 1000ML 1,000 ML IV ONE (14:24)
[2024-07-06] MEDS ORDERED: acetaMINOPHEN WITH coDEINE 1 TAB TAB PO PRN (14:30)
[2024-07-06] MEDS ORDERED: acetaMINOPHEN 500 MG TABLET PO PRN (14:30)
[2024-07-06] MEDS ORDERED: MINO100C6 PO (14:31)
[2024-07-06] MEDS ORDERED: TRAM50TA4 PO (14:35)
[2024-07-06 14:55] VITALS: BP 164/79; PULSE 60; RESP 15; TEMP 97.9
[2024-07-06 15:10] VITALS: BP 164/154; PULSE 60; RESP 14
[2024-07-06 15:25] VITALS: BP 139/77; PULSE 60; RESP 15
[2024-07-06 15:40] VITALS: BP 136/81; PULSE 62; RESP 14
[2024-07-06 15:55] VITALS: BP 128/64; PULSE 66; RESP 15
== END 2024-07-06 16:10 | disposition home or self-care (01) ==
LOC: CLH 10:37
PROVIDERS: ATTEND Internal Medicine Cardiovascular Disease
DX: I49.5 Sick sinus syndrome (principal); I48.92 Unspecified atrial flutter; I48.19 Other persistent atrial fibrillation; I44.0 Atrioventricular block, first degree; I44.7 Left bundle-branch block, unspecified; I10 Essential (primary) hypertension; I25.10 Atherosclerotic heart disease of native coronary artery without angina pectoris; Z95.5 Presence of coronary angioplasty implant and graft; Z85.46 Personal history of malignant neoplasm of prostate; Z79.01 Long term (current) use of anticoagulants; Z79.899 Other long term (current) drug therapy
CPT/HCPCS: 33208; 93005; 80048; 85025; 85610; 85730; 36415; 71045; A4649; C1769; C1785; C1898 ×2; C1894; J0690; J7030; J0665; J2250 ×3; J2175 ×3; J3490; Q9967; A4215; A6251; A4222; A4221; A4663; A4216; A6258; A4606; A4223 ×3; 99156; 99157

== ENCOUNTER 2024-10-19 05:58 | Day surgery (SDC) | payer MEDICARE ==
[2024-10-15 10:41] VITALS: BP 157/84; PULSE 72; RESP 18; TEMP 97.8
--- NOTE | 2024-10-15 10:44 | EKG ---
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
[2024-10-15 11:02] LABS: BASOPHILS # (AUTO) 0.05 K/uL (0.00-0.20); BASOPHILS % (AUTO) 0.8 % (0.0-5.0); EOSINOPHILS # (AUTO) 0.47 K/uL (0.00-0.70); EOSINOPHILS % (AUTO) 7.4 % (0.0-8.0); HEMATOCRIT 48.2 % (42-54); IMMATURE GRANULOCYTE ABSOLUTE 0.02 K/uL (0-1); LYMPHOCYTES # (AUTO) 1.1 K/uL (1.0-4.8); LYMPHOCYTES % (AUTO) 17.7 % (21.0-51.0); MEAN CORPUSCULAR HEMOGLOBIN 30.6 pg (27.0-33.0); MEAN CORPUSCULAR HGB CONC 33.4 g/dL (32.0-36.0); MEAN CORPUSCULAR VOLUME 91.6 fL (79-99); MONOCYTES # (AUTO) 0.7 K/uL (0.1-1.0); MONOCYTES % (AUTO) 11.5 % (3.0-13.0); NEUTROPHILS % (AUTO) 62.3 % (40.0-77.0); PLATELET COUNT (AUTO) 187 K/uL (130-400); RED BLOOD CELL COUNT(AUTO) 5.26 MIL/uL (4.50-6.20); RED CELL DISTRIBUTION WIDTH 14.2 % (11.0-15.5); WHITE BLOOD COUNT (AUTO) 6.3 K/uL (4.8-10.8)
[2024-10-15 11:11] LABS: INR 1.11 (0.85-1.15); PROTHROMBIN TIME 12.3 SEC (9.6-11.6)
[2024-10-15 11:12] LABS: CREATININE 1.1 mg/dL (0.5-1.3); PARTIAL THROMBOPLASTIN TIME 30.1 SEC (26.3-35.5); POTASSIUM 4.5 mmol/L (3.5-5.1)
[~2024-10-19] VITALS: Ht 172.7 cm; Wt 71.6 kg
[2024-10-19] VITALS (18 sets, daily range): BP systolic 93–144; BP diastolic 45–78; PULSE 60–70; RESP 10–18; TEMP 97.3–97.7
[~2024-10-19 05:58] MED LIST changes: -DRON400T7 PO; +ENTA200T5 PO; +METO-391 PO; -METO-408 PO; +OMEP20TA2 PO; -PANT40TA54 PO; -TADA20TA72 PO
[2024-10-19] MEDS: 0.9%NACL 1000ML 1,000 ML IV ONE (06:47)
[2024-10-19] MEDS ORDERED: FAMOTIDINE 20MG VIAL IV ONE (06:59)
[2024-10-19] MEDS ORDERED: acetaMINOPHEN 100 ML ONE (06:59)
[2024-10-19] MEDS ORDERED: LIDOCAINE PF 100MG/5ML (2%) SYRINGE 5ML ONE (07:02)
[2024-10-19] MEDS ORDERED: proPOFol 10 MG/ML 20ML VIAL IV ONE (07:02)
[2024-10-19] MEDS ORDERED: FENTanyl CITRate PF 50 MCG/1 ML 2ML VIAL ONE (07:03)
[2024-10-19] MEDS ORDERED: rocuRONium bROMide 10MG/1ML 5ML VL ONE (07:03)
[2024-10-19] MEDS ORDERED: LIDOCAINE HCL 400MG/20ML VIAL ONE (07:15)
[2024-10-19] MEDS ORDERED: HEParin-NS 1,000 UNIT/500 ML 1,000 ML IV ONE (07:15)
[2024-10-19] MEDS ORDERED: HEParin 10,000 UNIT/10ML (1,000 UNIT/ML) VIAL ONE ×3 (07:15→09:05)
[2024-10-19] MEDS ORDERED: MIDAZOLAM HCL 1 MG/ML 2ML VIAL ONE (07:41)
[2024-10-19] MEDS ORDERED: ceFAZolin SODIUM 1 GM VIAL ONE (07:43)
[2024-10-19] MEDS ORDERED: HEParin-NS 1,000 UNIT/500 ML 500 ML IV ONE (07:44)
[2024-10-19] MEDS ORDERED: ondanSETRON 4MG INJ ONE (07:53)
[2024-10-19] MEDS ORDERED: dexaMETHasone SOD PHOSPHATE 10MG/ML 1ML VIAL ONE (07:53)
[2024-10-19] MEDS ORDERED: GLYCOPYRROLATE 0.2 MG/ML 5 ML VIAL ONE (07:53)
[2024-10-19] MEDS ORDERED: NEOSTIGMINE METHYLSULFATE 1MG/ML IV ONE (07:53)
[2024-10-19] MEDS ORDERED: phenylEPHRINE HCL 10 MG/ML 1ML VIAL IV ONE (09:21)
[2024-10-19] MEDS ORDERED: PROTamine SULFate 10 MG/ML 25ML VIAL IV ONE (11:33)
--- NOTE | 2024-10-19 13:38 | NUR ---
REPORT: REPORT GIVEN TO FELIZ GILLETTE RN
--- NOTE | 2024-10-19 14:01 | NUR ---
Full and complete discharge instructions given to Patient and Family both verbally and in writing. Explained Cardiac Ablation procedure precautions and follow up. Groin site soft without bleeding, hematoma or bruising. Pedal pulses intact to BLE's. All questions answered. PIV removed with catheter tip intact. Addendum: 10/19/24 at 1422 by FELIZ GILLETTE RN RN W/C to POV with to home. Addendum: 10/19/24 at 1425 by FELIZ GILLETTE RN RN W/C to POV with to home.
--- NOTE | 2024-10-19 16:46 | EKG ---
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
== END 2024-10-19 14:28 | disposition home or self-care (01) ==
LOC: DAH 05:58
PROVIDERS: ATTEND Student in an Organized Health Care Education/Training Program
DX: I48.91 Unspecified atrial fibrillation (principal); I48.92 Unspecified atrial flutter; I25.10 Atherosclerotic heart disease of native coronary artery without angina pectoris; I10 Essential (primary) hypertension; I25.2 Old myocardial infarction; E66.9 Obesity, unspecified; Z98.890 Other specified postprocedural states; Z95.5 Presence of coronary angioplasty implant and graft; Z85.46 Personal history of malignant neoplasm of prostate; Z90.79 Acquired absence of other genital organ(s); Z68.24 Body mass index [BMI] 24.0-24.9, adult; Z79.899 Other long term (current) drug therapy
CPT/HCPCS: 80048; 85025; 85610; 85730 ×2; 36415 ×2; 93005 ×2; 93655; 93656; 93657 ×2; 85347 ×9; J2720; A4223 ×3; C1894 ×4; C1732 ×3; A4649 ×2; C1760 ×3; C1766; J3490 ×4; J3010; J0690; J1100; J7030; J2003; J1644 ×5; J2250; J2704; J2405; J2710; J2371; A4215; A4222; A4221; A4663; A4216; A4606

== ENCOUNTER 2024-10-24 10:20 | Emergency (ER) | payer MEDICARE ==
[~2024-10-24] VITALS: Ht 172.7 cm; Wt 69.4 kg
[2024-10-24 10:49] LABS: RAPID GROUP A STREP negative (NEGATIVE)
[2024-10-24 10:52] LABS: HEMATOCRIT 42.4 % (42-54); MEAN CORPUSCULAR HEMOGLOBIN 30.9 pg (27.0-33.0); MEAN CORPUSCULAR HGB CONC 35.1 g/dL (32.0-36.0); RED BLOOD CELL COUNT(AUTO) 4.82 MIL/uL (4.50-6.20); WHITE BLOOD COUNT (AUTO) 8.6 K/uL (4.8-10.8)
[2024-10-24 11:00] LABS: POTASSIUM 3.6 mmol/L (3.5-5.1)
[2024-10-24 11:01] LABS: INFLUENZA TYPE A Negative For Type A (NEGATIVE); INFLUENZA TYPE B Negative For Type B (NEGATIVE)
[2024-10-24 11:03] LABS: COVID19 (SARS ANTIGEN RAPID) PRESUMPTIVE NEGATIVE (NEGATIVE)
--- NOTE | 2024-10-24 11:53 | ERN ---
ED Note History of Present Illness Stated Complaint: COUGH Chief Complaint: Congestion Time Seen by MD: 10:32 Dictation: PATIENT IS AN 84-YEAR-OLD MALE COMING IN TODAY WITH COMPLAINTS OF LOW-GRADE FEVER 99.6 T-MAX, COUGH WITH MILD SORE THROAT SINCE FRIDAY. NO NAUSEA VOMI TING NO LOSS OF TASTE OR SMELL NO CHANGE IN URINATION. STATES THE COUGH IS UNPRODUCTIVE. STATES HE WAS HERE LAST WEEK FOR A AN ABLATION BY DR. MADISON HE WENT HOME THE SAME DAY WITHOUT ANY COMPLICATIONS. Allergies: Coded Allergies: clopidogrel (Unverified Allergy, Unknown, 12/16/23) Home Meds Reported Medications Omeprazole Magnesium (Prilosec Otc) 20 Mg Tablet.dr, 40 MG PO BID, TAB 10/15/24 Metoprolol Succinate (Metoprolol Succinate) 50 Mg Tab.er.24h, 50 MG PO DAILY, TAB 10/15/24 Entacapone (Entacapone) 200 Mg Tablet, 200 MG PO TID, TAB 10/15/24 Carbidopa/Levodopa (Carbidopa-Levodopa 25-100 Tab) 25 Mg-100 Mg Tablet, 1.5 TAB PO TID 12/16/23 Atorvastatin Calcium (LIPITOR) 20 Mg Tab, 20 MG PO MWF, TAB 02/25/23 Losartan Potassium (Losartan Potassium) 50 Mg Tablet, 1 TAB PO DAILY 01/16/23 Amlodipine Besylate (Amlodipine Besylate) 5 Mg Tablet, 5 MG PO BID 01/16/23 Apixaban (Eliquis) 5 Mg Tablet, 5 MG PO BID 01/16/23 Past Medical History Past Medical History: A-Fib, Heart Disease, Hypertension Additional Past Medical Hx: PARKINSON'S Surgical History: Pacer/AICD RN Note Reviewed/Agreed w/PFSH: Yes Review of System Dictation CONSTITUTIONAL: Negative except for HPI low-grade fever HEAD/FACE: Negative except for HPI EENT: Negative except for HPI RESPIRATORY: Negative except for HPI cough GASTROINTESTINAL/ABDOMINAL: Negative except for HPI GENITOURINARY: Negative except for HPI MUSCULOSKELETAL: Negative except for HPI INTEGUMENTARY: Negative except for HPI NEUROLOGICAL/PSYCH: Negative except for HPI HEMATOLOGIC/LYMPHATIC: Negative except for HPI All Systems Negative, Except as noted above. 13 point review of systems assessed and all negative except for above. Initial Vital Sign VS Vital Signs Date Time Temp Pulse Resp B/P (MAP) Pulse Ox O2 Delivery O2 Flow Rate FiO2 10/24/24 10:21 98.2 86 16 142/82 94 Room Air Physical Exam Dictation Vital Signs reviewed General Appearance: Alert, oriented x 3, no acute distress, well developed, nourished. Head and Face: non-traumatic. Eyes: PERRL, pink conjunctivas, eyelid no trauma, anterior chamber with arcus senilis. Ears: Pinnas intact and no signs of trauma or erythema ear canals clear and no discharge TM no erythema Nose: No discharge, no bleeding. Oropharynx: Mouth normal, tongue pink, pharynx clear, mild pharyngeal erythema, tonsils no exudates, no abscesses noted, mucous membrane moist uvula midline, voice is clear Neck: Supple, non-tender, no thyromegaly, no masses, no JVD, no bruits Breast:Deferred Chest:No tenderness, no crepitus, no paradoxical movement, no retractions Lungs:Clear, well-ventilated, symmetric, no rales, no wheezing, no rhonchi, no stridor, good breath sounds bilaterally Heart: Regular rate, regular rhythm, no murmur, no gallops Vascular: no peripheral edema, Abdomen: Soft, positive bowel sounds, nondistended, no guarding, nontender, no rebound, no masses no hepatomegaly, no splenomegaly, no Wilcox's sign, no hernias. Rectal: Deferred Genital: Deferred Neurological: Normal speech, motor function intact, sensory function intact Musculoskeletal: Neck nontender, full range of motion, back nontender, full range of motion, Extremities: nontender, full range of motion Skin: Color pink, dry, no turgor, no rash, no lacerations, no abrasions, no contusions. Lymphatic: Deferred Results (Laboratory/Radiology) Laboratory/Radiology Laboratory Tests Test 10/24/24 10:26 10/24/24 10:46 Influenza Type A Antigen Negative For Type A Influenza Type B Antigen Negative For Type B SARS-CoV-2 Antigen (Rapid) PRESUMPTIVE NEGATIVE Group A Streptococcus Rapid negative (NEGATIVE) White Blood Count 8.6 K/uL (4.8-10.8) Red Blood Count 4.82 MIL/uL (4.50-6.20) Hemoglobin 14.9 g/dL (14.0-18.0) Hematocrit 42.4 % (42-54) Mean Corpuscular Volume 88.0 fL (79-99) Mean Corpuscular Hemoglobin 30.9 pg (27.0-33.0) Mean Corpuscular Hemoglobin Concent 35.1 g/dL (32.0-36.0) Red Cell Distribution Width 14.0 % (11.0-15.5) Platelet Count 199 K/uL (130-400) Mean Platelet Volume 10.7 fL (7.5-10.5) H Nucleated Red Blood Cells 0.0 % (0.0-0.19) Sodium Level 136 mmol/L (136-145) Potassium Level 3.6 mmol/L (3.5-5.1) Chloride Level 100 mmol/L (101-111) L Carbon Dioxide Level 29 mmol/L (21-32) Blood Urea Nitrogen 14 mg/dL (7-18) Creatinine 1.0 mg/dL (0.5-1.3) Glomerular Filtration Rate Calc 75 mL/min (>90) Random Glucose 109 mg/dL (70-105) H Total Calcium 8.5 mg/dL (8.5-10.1) INDICATION: COUGH X3 DAYS, NONPRODUCTIVE TECHNIQUE: CHEST 1VW COMPARISON: 07/06/2024 FINDINGS AND IMPRESSION: Bilateral airspace consolidation suggesting vascular congestion/edema versus pneumonia. Mild cardiomegaly with left-sided pacemaker. Mild degenerative changes of the spine. The visualized upper abdomen appears unremarkable. 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 He reviewed l abs and x-ray is aware that he has got vascular congestion consistent with fluid overload. He does not want to wait for a BNP I advised him I would give him 80 of Lasix now discharge him home with Lasix 40 daily with potassium replacement and albuterol to follow up with his doctor in the next several days. He agreed but insisted he did not want to stay longer Medical Decision Making MDM Medical discharge making based on basic labs flu COVID and strep chest x-ray. Labs are essentially negative swabs negative Chest x-ray demonstrates a pacemaker in place with vascular congestion consistent with fluid overload. Patient will be given Lasix 80 mg p.o. now Discharged home with Lasix 40 mg daily for the next three days and albuterol inhaler. In addition he will be given K-Dur appropriate likely for the next three days . He agreed to this and said he would follow up with his primary care doctor. DX & DISP Disposition: Discharge Departure Impression: Primary Impression: Fluid overload Additional Impressions: Cough, Pacemaker Condition: Stable Scripts Albuterol Sulfate (Ventolin Hfa/Proventil Hfa/Proair Hfa) 90 Mcg Puff 2 PUFF IH Q4H PRN for SHORTNESS OF BREATH/WHEEZING for 30 Days, #1 INH 0 Refills Prov: BRIANNE GU TIRE SETTER 10/24/24 Potassium Chloride (K-Dur/Klor-Con) 20 Meq Ertab 1 TAB PO DAILY for 5 Days, #5 TAB 0 Refills Prov: BRIANNE GU TIRE SETTER 10/24/24 Furosemide (Furosemide) 40 Mg Tablet 1 TAB PO DAILY for 5 Days, #5 TAB 0 Refills Prov: BRIANNE GU TIRE SETTER 10/24/24 Additional Instructions: Follow-up with primary care provider in 1 to 2 days. Take medications as directed here in the emergency room. Okay to continue home medications unless otherwise discussed during your visit in the emergency room today. Return to your nearest emergency room if symptoms worsen or if there is no improvement. Call 911 if you need immediate assistance. Take Tylenol or Motrin ov [id number] as needed and if no contraindications are present. Increase oral hydration. A wound culture or urine culture was ordered here in the emergency room department please follow-up with primary care provider and advise them to get repeat ports from our facility. If you had any Abrahan wrap/splints that were applied here, please do not remove them until you see your primary care or specialty. Use albuterol every4 hours while awake for the next two days. Take Lasix as directed with K-Dur starting tomorrow. Follow up with your primary care doctor in the next 1-2 days for management. Referrals: MATT BRASHER MD (PCP) Time of Disposition: 14:52 I have reviewed the case, and I agree with, Diagnosis and Plan BRIANNE GU NP Oct 24, 2024 11:53
--- NOTE | 2024-10-24 14:09 | HMCIMG ---
INDICATION: COUGH X3 DAYS, NONPRODUCTIVE TECHNIQUE: CHEST 1VW COMPARISON: 07/06/2024 FINDINGS AND IMPRESSION: Bilateral airspace consolidation suggesting vascular congestion/edema versus pneumonia. Mild cardiomegaly with left-sided pacemaker. Mild degenerative changes of the spine. The visualized upper abdomen appears unremarkable.
[2024-10-24] MEDS ORDERED: ALBUHFA IH (14:53)
[2024-10-24] MEDS ORDERED: POTA-192 PO (14:53)
[2024-10-24] MEDS ORDERED: FURO40TA5 PO (14:53)
[2024-10-24] MEDS: furoSEMIDE 80 MG TABLET PO ONE (15:16)
[2024-10-24 15:27] VITALS: BP 163/89; PULSE 78; RESP 18; TEMP 97.6; O2SAT 97
== END 2024-10-24 15:32 | disposition home or self-care (01) ==
LOC: EDH 10:20
DX: E87.70 Fluid overload, unspecified (principal); R05.9 Cough, unspecified; I48.91 Unspecified atrial fibrillation; I11.9 Hypertensive heart disease without heart failure; Z79.01 Long term (current) use of anticoagulants; Z79.899 Other long term (current) drug therapy; Z95.810 Presence of automatic (implantable) cardiac defibrillator; Z20.822 Contact with and (suspected) exposure to COVID-19
CPT/HCPCS: 36415; 71045; 80048; 85027; 87426; 87804; 87880; 99284